=== PATIENT | male | born 2000 | race Caucasian/White ===

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

== ENCOUNTER → 2021-09-15 14:57 | Outpatient (BNVA) | payer OTHER, SELFPAY | PROVIDERS: PCP Family Medicine; Visit Provider Registered Nurse | DX: Z79.899 Other long term (current) drug therapy (principal) | CPT/HCPCS: 80053; 80061; 82306; 83036; 84443; 85025 ==

== ENCOUNTER → 2021-12-11 18:13 | Outpatient (BNVA) | payer OTHER, SELFPAY | PROVIDERS: PCP Family Medicine; Visit Provider Registered Nurse Neonatal Intensive Care | DX: J02.9 Acute pharyngitis, unspecified (principal) | CPT/HCPCS: 87880 ==

== ENCOUNTER → 2022-08-27 13:24 | Outpatient (BNVA) | payer OTHER, SELFPAY | PROVIDERS: PCP Family Medicine; Visit Provider Family Medicine | DX: R00.2 Palpitations (principal); E66.01 Morbid (severe) obesity due to excess calories | CPT/HCPCS: 80053; 80061; 83036; 84443; 85025 ==

== ENCOUNTER → 2022-08-28 11:46 | Outpatient (BNVA) | payer OTHER, SELFPAY | PROVIDERS: PCP Family Medicine; Visit Provider Family Medicine | DX: R00.2 Palpitations (principal); E66.01 Morbid (severe) obesity due to excess calories; D64.9 Anemia, unspecified | CPT/HCPCS: 80053; 82728; 83550 ==

== ENCOUNTER → 2023-02-25 14:25 | Outpatient (BNVA) | payer OTHER, SELFPAY | PROVIDERS: PCP Family Medicine; Visit Provider Family Medicine | DX: D50.9 Iron deficiency anemia, unspecified (principal); K90.41 Non-celiac gluten sensitivity; E55.9 Vitamin D deficiency, unspecified; Z86.39 Personal history of other endocrine, nutritional and metabolic disease | CPT/HCPCS: 82306; 82728; 82784; 83516; 83550; 85025 ==

== ENCOUNTER 2023-04-23 09:05 | Day surgery (SDC) | payer OTHER, MEDICAID, SELFPAY ==
[2023-04-21 13:21] VITALS: BMI 35.7
--- NOTE | 2023-04-23 06:45 | W.PM.OPSFHP ---
Same Day Surgery H&P Indication for Procedure/HPI DATE OF PROCEDURE: April 23, 2023 CHIEF COMPLAINT/INDICATIONFOR SURGICAL PROCEDURE: Reflux PREOP DIAGNOSIS: GERD PLANNED PROCEDURE: Operation Date: 04/23/23 10:00 Proposed Procedures p EGD 87872,k21.9(Not Applicable) - Josias Maynard MD Medications/Allergies* Home Medications Medication Instructions Recorded Confirmed Type ferrous gluconate 240 mg (27 mg 240 mg PO DAILY 03/11/23 04/21/23 History iron) tablet (Ferate) Allergies/Adverse Reactions Allergy/AdvReac Type Severity Reaction Status Date / Time diphenhydramine Allergy Severe Unconscious Verified 03/11/23 13:41 [From Benadryl] Pertinent History/Comorbid Conditions* Medical History (Updated 02/28/23 @ 11:18 by Valentine Bennett DO) Attention deficit hyperactivity disorder (ADHD), combined type, mild Generalized anxiety disorder Major depressive disorder, recurrent Psychiatric care Family History (Updated 01/29/22 @ 10:17 by Ezio Knox EdD, GLASS MELT OPERATOR) Psychiatric care Social History Smoking and tobacco status: current every day smoker (smokes and vapes) Alcohol intake: current Alcohol intake frequency: holidays/special occasions only Substance/Drug Use: never Pertinent Exam Findings alert, oriented x 3, clear to auscultation bilaterally and regular rate & rhythm Recommendations Surgery/Procedure today Coding Level of Care Code Acute Code for Chg Fwd Diagnoses
[2023-04-23 09:24] VITALS: BP 123/76; PULSE 65; RESP 18; TEMP 36.4; O2SAT 98
[2023-04-23] MEDS: sodium chloride 0.9% 1,000 ML 30 ML IV (09:24)
[2023-04-23 09:26] VITALS: BMI 35.7
--- NOTE | 2023-04-23 09:33 | ANES.PREANE2 ---
Pre-Anesthetic Assessment Height/Weight: Height 1.73 m Weight 106.594 kg Temp Pulse Resp BP Pulse Ox O2 Del Method 97.6 F 65 18 123/76 98 Room Air 04/23/23 09:24 04/23/23 09:24 04/23/23 09:24 04/23/23 09:24 04/23/23 09:24 04/23/23 09:24 Preop Diagnosis: GERD Operation Date: 04/23/23 10:00 Proposed Procedures p EGD [id number],k21.9(Not Applicable) - Josias Maynard MD Was Beta Masood taken within 24 hours: N/A Was Clonidine taken within 24 hours: N/A Last intake: Intake Last Liquid Date 04/22/23 Last Liquid Time 23:30 Last Solid Date 04/22/23 Last Solid Time 23:30 Social Tobacco Exam alert, oriented x 3, clear to auscultation bilaterally and regular rate & rhythm Airway Submandibular: within normal limits Cervical ROM: within normal limits Mallampati: Class II Dentition: full History/ROS No significant history except as noted and No significant complaints Pulmonary None reported CV/HEM None reported None reported Hepatic None reported GI Gastroesophageal Reflux Disease Metabolic None reported Musc/skel None reported Neuropsych Anxiety and Depression ADHD Anesthetic Plan Anesthesia: Anesthesia Evaluation and MAC Risk of > 500 ml blood loss (7ml/kg in children): No Medications/Allergies Home Medications Medication Instructions Recorded Confirmed Last Taken Type diltiazem HCl 30 mg tablet 30 mg PO BID PRN tachycardia #90 04/30/22 04/23/23 04/22/23 Rx tabs gabapentin 100 mg capsule See Rx Instructions .Route 10/08/22 04/23/23 04/22/23 Rx .COMPLEX #30 caps L.acidop,casei,lactis,rham-B.lact,komal 1 cap PO DAILY #30 caps 02/25/23 04/23/23 04/22/23 Rx 625 mg (10 billion cell) capsule (Advanced Probiotic) omeprazole 40 mg capsule,delayed 40 mg PO DAILY #90 caps 02/25/23 04/23/23 04/22/23 Rx release cholecalciferol (vitamin D3) 1,250 50,000 unit PO .weekly #12 caps 02/26/23 04/23/23 04/22/23 Rx mcg (50,000 unit) capsule ferrous gluconate 240 mg (27 mg 240 mg PO DAILY 03/11/23 04/23/23 04/22/23 History iron) tablet (Ferate) lamotrigine 200 mg tablet See Rx Instructions .Route 03/26/23 04/23/23 04/22/23 Rx .COMPLEX #30 tabs methylphenidate HCl 20 mg tablet 20 mg PO DAILY 30 days #30 tabs 03/29/23 04/23/23 04/22/23 Rx methylphenidate HCl 20 mg 40 mg PO DAILY 30 days #60 tabs 03/29/23 04/23/23 04/22/23 Rx tablet,extended release (Metadate ER) Allergies Allergy/AdvReac Type Severity Reaction Status Date / Time diphenhydramine Allergy Severe Unconscious Verified 04/23/23 09:23 [From Nicky] Current Medications Generic Name Dose Route Start Last Admin Trade Name Freq PRN Reason Stop Dose Admin Sodium Chloride 1,000 mls @ 30 mls/hr 04/23/23 09:15 04/23/23 09:24 Sodium Chloride 0.9% IV 30 mls/hr .Q24H JACQUIE Administration PFSH Anesthesia Medical History Attention deficit hyperactivity disorder (ADHD), combined type, mild Generalized anxiety disorder Major depressive disorder, recurrent Psychiatric care Family History Other Psychiatric care Social History Smoking and tobacco status: current every day smoker (smokes and vapes) Alcohol intake: current Alcohol intake frequency: holidays/special occasions only Substance/Drug Use: never Data Anesthesia Cardiac Studies: Echocardiogram Ultrasound 07/05/20 Holter Monitor 04/30/22
[2023-04-23 10:13] VITALS: BP 120/70; PULSE 95; RESP 20; TEMP 36.2; O2SAT 93
[2023-04-23 10:25] VITALS: BP 119/79; PULSE 78; RESP 16; O2SAT 100
[2023-04-23 10:32] VITALS: BP 97/82; PULSE 75; RESP 18; O2SAT 100
--- NOTE | 2023-04-23 10:45 | ANE.PACU2 ---
Inpatient post-anesthesia follow up: Airway intact: Yes Vital signs: Temperature 97.1 F Pulse Rate 75 Respiratory Rate 18 Blood Pressure 97/82 Pulse Oximetry 100 Oxygen Delivery Me thod Room Air Oxygen Flow Rate 6 Fraction of Inspir ed Oxygen Hydration adequate: Yes Nausea and vomiting: No Pain level: 1 Mental status: Baseline
== END 2023-04-23 10:55 | disposition home or self-care (01) ==
PROVIDERS: PCP Family Medicine; Visit Provider Surgery
PROC: 0DJ08ZZ Inspection of Upper Intestinal Tract, Via Natural or Artificial Opening Endoscopic (ICD-10-PCS; CPT 43235; principal; 2023-04-23 10:00)
DX: K21.9 Gastro-esophageal reflux disease without esophagitis (principal); K29.50 Unspecified chronic gastritis without bleeding; F90.9 Attention-deficit hyperactivity disorder, unspecified type; F41.1 Generalized anxiety disorder; F17.290 Nicotine dependence, other tobacco product, uncomplicated
CPT/HCPCS: 43239; 88305; 88342; J2704; J7030

== ENCOUNTER → 2024-10-20 13:41 | Outpatient (BNVA) | payer OTHER, SELFPAY | PROVIDERS: Family Provider Family Medicine; PCP Family Medicine; Visit Provider Family Medicine | DX: D50.8 Other iron deficiency anemias (principal); D50.9 Iron deficiency anemia, unspecified; E55.9 Vitamin D deficiency, unspecified; Z86.39 Personal history of other endocrine, nutritional and metabolic disease; Z13.6 Encounter for screening for cardiovascular disorders | CPT/HCPCS: 80053; 80061; 82306; 82728; 83550; 84443; 85025 ==

== ENCOUNTER 2025-05-11 01:27 | Emergency (ER) | payer OTHER, SELFPAY ==
--- OUTSIDE RECORDS SUMMARY | 2025-05-11 01:32 | XMS_ITS | Clinical Summary ---
Author Organization [facility] Address [address] [facility] Attn: Epic Prelude ADT TAYLER DOUGLAS [address] Care Team Providers Care Wire Wrapper Machine Operator Name Role Phone Valentine Bennett Primary Care Provider [phone]- [phone] Allergies No known active allergies Medications HYDROcodone-shaun taminophen (NORCO) 5-325 mg tabletIndicatio ns:Postoperativ e pain Take 1-2 Tablets by mouth every 4 hours as needed for Pain. Max Daily Amount: 12 Tablets 40 Tablet 0 12/08/2018 Active buPROPion HCL (WELLBUTRIN XL) 150 mg Extended Release 24 hour tablet Take 150 mg by mouth daily technical asst. 12/02/2018 Active sertraline (ZOLOFT) 100 mg tablet Take 100 mg by mouth daily Takes 07/19/2 tab qd . 07/21/2018 Active acetaminophen (TYLENOL) 500 mg tablet Take 500 mg by mouth every 6 hours as needed. 08/22/2018 Active Family History Medical History Relation Name Comments Hearing Loss Maternal Grandfather Bleeding Problem Maternal Grandmother Heart Disease Maternal Grandmother Stroke Maternal Grandmother Bleeding Problem Mother Bleeding Problem Other Hearing Loss Other Stroke Other Hearing Loss Paternal Grandfather Breast Cancer Paternal Grandmother Cancer Paternal Grandmother Diabetes Paternal Grandmother Relation Name Status Comments Maternal Grandfather Maternal Grandmother Mother Other Paternal Grandfather Paternal Grandmother Social History Tobacco Use Types Packs/Day Years Used Date Smoking Tobacco: Unknown Smokeless Tobacco: Never Alcohol Use Standard Drinks/Week Comments No 0 (1 standard drink = 0.6 oz pur e alcohol) Sex and Gender Information Value Date Recorded Sex Assigned at Not on file 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 Gender Identity Not on file Sexual Orientation Not on file Last Filed Vital Signs Vital Sign Reading Time Taken Comments Blood Pressure 119/70 12/08/2018 4:13 PM CDT Pulse 87 12/08/2018 4:13 PM CDT Temperature 36.4 C (97.6 F) 12/08/2018 3:30 PM CDT Respiratory Rate 16 12/08/2018 4:13 PM CDT Oxygen Saturation - - Inhaled Oxygen Concentration - - Weight 61.7 kg (136 lb) 12/08/2018 11:47 AM CDT Height 170.2 cm (5' 7 ) 12/02/2018 2:52 PM CDT Body Mass Index 21.3 12/02/2018 2:52 PM CDT Plan of Treatment Health Maintenance Due Date Last Done Comments HPV VACCINES (1 - Male 3-dose series) 2016 DTAP/TDAP/TD VACCINES (1 - Tdap) 2020 HEPATITIS B VACCINES (1 of 3 - 19+ 3-dose series) 09/16 INFLUENZA VACCINE (#1) 2025 Care Teams Wire Wrapper Machine Operator Relationship Specialty Start Date End Date Valentine Bennett DO PCP - General Family Practice 10/21/18
--- OUTSIDE RECORDS SUMMARY | 2025-05-11 01:32 | XMS_ITS | Clinical Summary ---
Author Organization [facility] Address [address] [place] [address] Care Team Providers Care Tab Cutter Name Role Phone Valentine Bennett Primary Care Provider +1- [phone] Allergies No known active allergies Medications sertraline (ZOLOFT) 100 mg tablet Take 100 mg by mouth daily Takes tab qd . Active acetaminophen (TYLENOL) 500 mg tablet Take 500 mg by mouth every 6 hours as needed. Active buPROPion HCl (WELLBUTRIN XL) 150 mg Extended Release 24 hour tablet Take 150 mg by mouth daily operator electronic warfare. Active HYDROcodone-shaun taminophen (NORCO) 5-325 mg tabletIndicatio ns:Postoperativ e pain Take 1-2 Tablets by mouth every 4 hours as needed for Pain. 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 Gender Identity Not on file Sexual Orientation Not on file Last Filed Vital Signs Vital Sign Reading Time Taken Comments Blood Pressure 119/70 12/08/2018 4:13 PM CDT Pulse 87 12/08/2018 4:13 PM CDT Temperature 36.4 C (97.6 F) 12/08/2018 3:30 PM CDT Respiratory Rate 16 12/08/2018 4:13 PM CDT Oxygen Saturation 99% 12/08/2018 4:13 PM CDT Inhaled Oxygen Concentration - - Weight 61.7 [...] 3-dose series) 09/16 INFLUENZA VACCINE (#1) 2025 Insurance [employer]US [employer] CHOICE PLUS Advance Directives For more information, please contact: [phone] * Full Code (Latest Code Status on File) Date Activated Date Inactivated Comments 12/08/2018 1:14 PM 12/08/2018 6:58 PM * Full Code Date Activated Date Inactivated Comments 07/25/2018 2:33 PM 07/25/2018 6:41 PM * Full Code Date Activated Date Inactivated Comments 07/25/2018 9:23 AM 07/25/2018 2:33 PM Care Teams Tab Cutter Relationship Specialty Start Date End Date Valentine Bennett DO PCP - General Family Practice 10/21/18
[2025-05-11 01:56] VITALS: BP 126/78; PULSE 64; RESP 18; TEMP 36.5; O2SAT 100; BMI 22.9
[2025-05-11 02:48] LABS: Hematocrit 46.9 % (37-53); Hemoglobin 15.60 g/dL (11.27-16.99); Mean Corpuscular HGB Conc 33.3 g/dL (30-55); Mean Corpuscular Hemoglobin 30.1 pg (27-33); Mean Corpuscular Volume 90.5 fl (82-101); Nucleated Red Blood Cells % 0 %; Platelet Count 327 10^3/cmm (157-399); Red Blood Count 5.18 10^6/uL (3.85-5.65); White Blood Count 13.54 10^3/uL (3.29-11.43)
[2025-05-11 03:12] LABS: Alanine Aminotransferase 19 U/L (0-41); Albumin Level 5.5 g/dL (3.5-5.2); Alkaline Phosphatase 77 U/L (40-130); Anion Gap 17.6 (5-19); Aspartate Amino Transferase 17 U/L (0-40); Blood Urea Nitrogen 14 mg/dL (6-20); Calcium 10.7 mg/dL (8.5-10.5); Carbon Dioxide 28 mmol/L (22-29); Chloride 99 mmol/L (98-107); Creatinine Clr Calc Pharmacy 185.3497; Globulin 2.9 g/dL (1.3-4.6); Glucose 105 mg/dL (65-115); Lipase 26 U/L (13-60); Osmolality Calculated 293 mOsm/kg (285-295); Potassium 3.6 mmol/L (3.5-5.1); Sodium 141 mmol/L (136-145); Total Protein 8.4 g/dL (6.6-8.7)
--- NOTE | 2025-05-11 03:24 | CTR_ITS ---
PROCEDURE INFORMATION: Exam: CT Abdomen And Pelvis With Contrast Exam date and time: 05/11/2025 4:29 AM Age: 24 years old Clinical indication: Abdominal pain; Additional info: Ruq pain TECHNIQUE: Imaging protocol: Computed tomography of the abdomen and pelvis with contrast. Radiation optimization: All CT scans at this facility use at least one of these dose optimization techniques: automated exposure control; mA and/or kV adjustment per patient size (includes targeted exams where dose is matched to clinical indication); or iterative reconstruction. Contrast material: OMNI 350; Contrast volume: 100 ml; Contrast route: INTRAVENOUS (IV); COMPARISON: No relevant prior studies available. RADIATION DOSE METRICS: Total DLP (mGy-cm): 416.83 FINDINGS: Lungs: Lung bases are clear as visualized. Liver: Normal. No mass. Gallbladder and biliary ducts: Findings suspicious for gallstones or possibly sludge within the gallbladder. There may be gallbladder wall thickening although no definite pericholecystic fluid or inflammatory fat stranding is noted. Pancreas: Normal. No ductal dilation. Spleen: Normal. No splenomegaly. Adrenal glands: Normal. No mass. Kidneys and ureters: Are multiple small nonobstructing renal calculi involving the right kidney. The left kidney is normal. No hydronephrosis is noted. Stomach and bowel: There is mild wall thickening versus underdistention involving the colon. There are air-fluid levels involving nondilated loops of small bowel. No dilated loops of bowel are appreciated. Appendix: No evidence of appendicitis. Intraperitoneal space: Unremarkable. No free air. No significant fluid collection. Vasculature: Unremarkable. No abdominal aortic aneurysm. Lymph nodes: Unremarkable. No enlarged lymph nodes. Urinary bladder: Unremarkable as visualized. Reproductive: Unremarkable as visualized. Bones/joints: Unremarkable. No acute fracture. Soft tissues: Unremarkable. CT/CT abdomen pelvis w con* [id number] IMPRESSION: 1. Somewhat heterogeneous appearance to the gallbladder suggestive of stones and/or sludge. There may be mild gallbladder wall thickening all no no definite adjacent inflammatory fat stranding is noted. Findings could be related to acute or chronic gallbladder disease. Ultrasound may add additional information if desired. 2. Nephrolithiasis on the right. 3. Wall thickening versus underdistention involving the colon. Recommend clinical correlation as to the presence of a mild colitis. 4. Air-fluid levels involving nondilated loops of small bowel. This is a nonspecific finding but can be seen with an ileus/enteritis.
--- NOTE | 2025-05-11 03:25 | W.ED.GENADLT ---
HPI - General Adult General: Chief complaint: Abdominal Pain Stated complaint: severe abd pain, on and off for 4 days Time Seen by Provider: 05/11/25 02:47 History of Present Illness: 24-year-old male presents with a chief complaint of 4 days of right upper quadrant pain, worse with eating, now persistent. Pain comes and goes and is severe. It has been associate with nausea, vomiting and diarrhea. No fever, chest pain or shortness of breath though patient states that he does feel little short of breath when the pain hits. No blood in stool. No urinary symptoms such as burning with urination or hematuria. He does not have any history of abdominal surgeries. Patient denies tobacco, alcohol or illicit drug use. Related Data Home Medications ?Medication ?Instructions ?Recorded ?Confirmed ferrous gluconate 240 mg (27 mg 240 mg PO DAILY 03/11/23 04/10/25 iron) tablet (Ferate) cholecalciferol (vitamin D3) 250 250 mcg PO DAILY 08/09/24 04/10/25 mcg (10,000 unit) capsule Previous Rx's ?Medication ?Instructions ?Recorded diltiazem HCl 30 mg tablet 30 mg PO BID PRN tachycardia #90 04/30/22 tabs gabapentin 100 mg capsule See Rx Instructions .Route 01/11/25 .COMPLEX #30 caps bupropion HCl 150 mg 24 hr tablet, 150 mg PO QAM #30 tabs 04/10/25 extended release (Wellbutrin XL) lamotrigine 200 mg tablet See Rx Instructions .Route 04/10/25 .COMPLEX #30 tabs dextroamphetamine-amphetamine 20 20 mg PO QDAY 30 days #30 tabs 05/10/25 mg tablet dextroamphetamine-amphetamine ER 30 mg PO BID 30 days #60 caps 05/10/25 30 mg 24hr capsule,extend release (Adderall XR) hyoscyamine sulfate 0.125 mg tablet 0.125 mg PO Q6H PRN pain/spasm #30 05/11/25 tabs ketorolac 10 mg tablet 10 mg PO Q6H PRN pain 5 days #20 05/11/25 tabs ondansetron HCl 4 mg tablet 4 mg PO Q6H PRN nausea and 05/11/25 vomiting 5 days #20 tabs oxycodone 5 mg tablet 5 mg PO Q6H PRN severe pain (scale 05/11/25 score 7-10) #12 tabs Allergies Allergy/AdvReac Type Severity Reaction Status Date / Time diphenhydramine (From Allergy Severe Unconscious Verified 05/11/25 01:59 Benadryl) [facility] PFSH: Medical History (Updated 05/11/25 @ 06:31 by Liudmila Lebron MD) Major depressive disorder, recurrent Psychiatric care Generalized anxiety disorder Attention deficit hyperactivity disorder (ADHD), combined type, mild Surgical History Hx of tonsillectomy Family History Other Psychiatric care Social History Smoking and tobacco/nicotine status: former use of tobacco/nicotine Quit status (tobacco/nicotine): has quit using Year quit tobacco: 6 MO AGO Alcohol intake: current Alcohol intake frequency: holidays/special occasions only Substance/Drug Use: never Physical Exam Narrative: EXAM NARRATIVE: Vitals were reviewed. Patient is alert, oriented and able to provide history however he appears to be in severe pain and is writhing on the bed. Patient has clear lung sounds bilaterally, SpO2 is 100% on room air. He has normal heart sounds. Patient is not hypotensive nor tachycardic. Patient has a nondistended and soft abdomen, no pain with palpation over the McBurney's point, suprapubic region, left lower quadrant or epigastrium. He is exquisitely tender over the right upper quadrant; positive Rivera sign. Patient is moving all extremities, no lower extremity edema or asymmetry. Course Vital Signs: Vital signs: Vital Signs Temperature 97.7 F 05/11/25 01:56 Pulse Rate 64 05/11/25 01:56 Respiratory Rate 18 05/11/25 01:56 Blood Pressure 126/78 05/11/25 01:56 Pulse Oximetry 100 05/11/25 01:56 [facility] - General Adult Medical Decision Making 24-year-old male with a chief complaint of 4 days of right upper quadrant abdominal pain, nausea, vomiting and diarrhea. Differential diagnosis includes, but is not limited to, pancreatitis, cholecystitis, gastroenteritis, appendicitis, urinary tract infection, pyelonephritis, nephrolithiasis, SBO, diverticulitis, other. On initial exam, patient is hemodynamically stable and nontoxic appearing. Patient was evaluated with CBC, CMP, lipase, UA and CT abd/pelvis. Patient was treated IV Dilaudid, IV Zofran and IV fluids. Patient has an elevated white blood cell count. He does not have any actionable electrolyte abnormalities. Patient has normal kidney function and liver function. Patient patient has normal kidney function and liver function. UA does not show evidence of infection however there is significant number of red blood cells. CT scan does show some stones in the kidney, I wonder if patient has passed a kidney stone. CT shows: IMPRESSION: 1. Somewhat heterogeneous appearance to the gallbladder suggestive of stones and/or sludge. There may be mild gallbladder wall thickening all no no definite adjacent inflammatory fat stranding is noted. Findings could be related to acute or chronic gallbladder disease. Ultrasound may add additional information if desired. 2. Nephrolithiasis on the right. 3. Wall thickening versus underdistention involving the colon. Recommend clinical correlation as to the presence of a mild colitis. 4. Air-fluid levels involving nondilated loops of small bowel. This is a nonspecific finding but can be seen with an ileus/enteritis. CT scan does not show definitive evidence of cholecystitis. LFTs are are within normal limits and patient has been afebrile. We discussed transfer to [place] for emergent surgical consultation versus outpatient surgical evaluation on Wednesday. Patient opted for outpatient evaluation. We discussed return precautions and he was encouraged to return should he spike a fever, pain is uncontrolled at home, he continues to have nausea and vomiting despite medications. At this time, patient is stable for discharge and close outpatient surgical follow-up. Lab Data 05/11/25 02:41 05/11/25 02:41 Radiology Impressions Abdomen/Pelvis CT 05/11/25 03:24 IMPRESSION: 1. Somewhat heterogeneous appearance to the gallbladder suggestive of stones and/or sludge. There may be mild gallbladder wall thickening all no no definite adjacent inflammatory fat stranding is noted. Findings could be related to acute or chronic gallbladder disease. Ultrasound may add additional information if desired. 2. Nephrolithiasis on the right. 3. Wall thickening versus underdistention involving the colon. Recommend clinical correlation as to the presence of a mild colitis. 4. Air-fluid levels involving nondilated loops of small bowel. This is a nonspecific finding but can be seen with an ileus/enteritis. Laboratory Results WBC 13.54 10^3/uL (3.29-11.43) H 05/11/25 02:41 RBC 5.18 10^6/uL (3.85-5.65) 05/11/25 02:41 Hgb 15.60 g/dL (11.27-16.99) 05/11/25 02:41 Hct 46.9 % (37-53) 05/11/25 02:41 MCV 90.5 fl (82-101) 05/11/25 02:41 MCH 30.1 pg (27-33) 05/11/25 02:41 MCHC 33.3 g/dL (30-55) 05/11/25 02:41 RDW 12.5 % (12.1-15.1) 05/11/25 02:41 Plt Count 327 10^3/cmm (157-399) 05/11/25 02:41 MPV 9.1 fL (7.4-10.4) 05/11/25 02:41 Neut % (Auto) 80.8 % 05/11/25 02:41 Lymph % (Auto) 12.5 % 05/11/25 02:41 [place] % (Auto) 5.1 % 05/11/25 02:41 Eos % (Auto) 1.0 % 05/11/25 02:41 Baso % (Auto) 0.3 % 05/11/25 02:41 Neut # (Auto) 10.95 10^3/uL (1.8-7.7) H 05/11/25 02:41 Lymph # (Auto) 1.7 10^3/uL (0.8-4.8) 05/11/25 02:41 [place] # (Auto) 0.7 10^3/uL (0.2-0.9) 05/11/25 02:41 Eos # (Auto) 0.1 10^3/uL (0.0-0.8) 05/11/25 02:41 Baso # (Auto) 0.0 10^3/uL (0.0-0.1) 05/11/25 02:41 Nucleated RBC % (auto) 0 % 05/11/25 02:41 Nucleated RBCs # 0.0 /100WBC 05/11/25 02:41 Sodium 141 mmol/L (136-145) 05/11/25 02:41 Potassium 3.6 mmol/L (3.5-5.1) 05/11/25 02:41 Chloride 99 mmol/L (98-107) 05/11/25 02:41 Carbon Dioxide 28 mmol/L (22-29) 05/11/25 02:41 Anion Gap 17.6 (5-19) 05/11/25 02:41 BUN 14 mg/dL (6-20) 05/11/25 02:41 Creatinine 0.6 mg/dL (0.7-1.2) L 05/11/25 02:41 GFR Calculation 167.0 mL/min (90-130) H 05/11/25 02:41 Glucose 105 mg/dL (65-115) 05/11/25 02:41 Calculated Osmolality 293 mOsm/kg (285-295) 05/11/25 02:41 Calcium 10.7 mg/dL (8.5-10.5) H 05/11/25 02:41 Total Bilirubin 0.5 mg/dL (0.15-1.2) 05/11/25 02:41 AST 17 U/L (0-40) 05/11/25 02:41 ALT 19 U/L (0-41) 05/11/25 02:41 Alkaline Phosphatase 77 U/L (40-130) 05/11/25 02:41 Total Protein 8.4 g/dL (6.6-8.7) 05/11/25 02:41 Albumin 5.5 g/dL (3.5-5.2) H 05/11/25 02:41 Globulin 2.9 g/dL (1.3-4.6) 05/11/25 02:41 Lipase 26 U/L (13-60) 05/11/25 02:41 Urine Color Yellow (Yellow) 05/11/25 05:45 Urine Appearance Clear (CLEAR) 05/11/25 05:45 Urine pH 8.5 (5-7) A 05/11/25 05:45 Ur Specific [place] 1.081 (1.005-1.030) H 05/11/25 05:45 Urine Protein Trace (Negative) A 05/11/25 05:45 Urine Glucose (UA) Negative (Normal) 05/11/25 05:45 Urine Ketones 2+ (Negative) H 05/11/25 05:45 Urine Blood 3+ (Negative) A 05/11/25 05:45 Urine Nitrate Negative (Negative) 05/11/25 05:45 Urine Bilirubin Negative (Negative) 05/11/25 05:45 Urine Urobilinogen 1.0 mg/dL (Negative) 05/11/25 05:45 Ur Leukocyte Esterase Negative (Negative) 05/11/25 05:45 Urine RBC 51-100 /hpf (0-2) H 05/11/25 05:45 Urine WBC 0-5 /hpf (0-5) 05/11/25 05:45 Ur Squamous Epith Cells 0-5 /hpf (0-5) 05/11/25 05:45 Amorphous Sediment Not Reportable 05/11/25 05:45 Urine Bacteria None seen /hpf (NONE) 05/11/25 05:45 Hyaline Casts 0-4 /lpf H 05/11/25 05:45 All radiology interpretation(s) finalized by discharge Discharge Plan Discharge Patient Disposition: Home Clinical Impression: Colic, biliary, Kidney stone on right side Condition: Stable Prescriptions: New ketorolac 10 mg tablet 10 mg PO Q6H PRN (Reason: pain) 5 Days Qty: 20 0RF ondansetron HCl 4 mg tablet 4 mg PO Q6H PRN (Reason: nausea and vomiting) 5 Days Qty: 20 0RF hyoscyamine sulfate 0.125 mg tablet 0.125 mg PO Q6H PRN (Reason: pain/spasm) Qty: 30 0RF oxycodone 5 mg tablet 5 mg PO Q6H PRN (Reason: severe pain (scale score 7-10)) Qty: 12 0RF No Action diltiazem HCl 30 mg tablet 30 mg PO BID PRN (Reason: tachycardia) Qty: 90 3RF ferrous gluconate [Ferate] 240 mg (27 mg iron) tablet 240 mg PO DAILY cholecalciferol (vitamin D3) 250 mcg (10,000 unit) capsule 250 mcg PO DAILY bupropion HCl [Wellbutrin XL] 150 mg tablet extended release 24 hr 150 mg PO QAM Qty: 30 5RF lamotrigine 200 mg tablet See Rx Instructions .ROUTE .COMPLEX Qty: 30 5RF Dose Instruction: TAKE 1 TABLET BY MOUTH DAILY Rx Instructions: TAKE 1 TABLET BY MOUTH DAILY gabapentin 100 mg capsule See Rx Instructions .ROUTE .COMPLEX Qty: 30 5RF Dose Instruction: TAKE 1 CAPSULE BY MOUTH DAILY NEEDED FOR ANXIETY Rx Instructions: TAKE 1 CAPSULE BY MOUTH DAILY NEEDED FOR ANXIETY dextroamphetamine-amphetamine 20 mg tablet 20 mg PO QDAY 30 Days Qty: 30 0RF dextroamphetamine-amphetamine [Adderall XR] 30 mg capsule,extended release 24hr 30 mg PO BID 30 Days Qty: 60 0RF Discharge Orders: Discharge ED (Routine); Ordered 05/11/25 Ordered By: Liudmila Lebron Referrals: Valentine Bennett DO [Primary Care Provider, Family Practice] Patient Instructions: Abdominal Pain (ED), Opioid Safety, Pain Management, Patient Portal & Aime Instructions Print Language: Polish Coding Level of Care Code ED [employer] Lay Out Worker for Luz Elena Allsion
[2025-05-11] MEDS: HYDROmorphone 0.5 MG/0.5 ML INJ 1 MG IVP (04:17)
[2025-05-11] MEDS: ondansetron 2 mg/ML SDV 2 mL 8 MG IVP (04:17)
[2025-05-11] MEDS: iohexol 350 mg/mL 500 mL Btl (per mL) IV (04:34)
[2025-05-11 05:57] LABS: Glucose Urine UA Negative (Normal); Nitrate Urine Negative (Negative)
[2025-05-11 06:02] LABS: Add Urine Microscopic? YES
[2025-05-11 06:09] LABS: Specific Gravity, Urine 1.081 (1.005-1.030)
[2025-05-11] MEDS: acetaminophen 1,000 MG/100 ML PIGGYBACK 400 MG IV (07:21)
[2025-05-11 07:23] VITALS: RESP 16
[2025-05-11] MEDS: ondansetron 2 mg/ML SDV 2 mL 4 MG IVP (07:23)
[2025-05-11] MEDS: morphine 4 mg/mL SDV 1 mL IVP (07:23)
[2025-05-11 07:29] VITALS: BP 130/86; PULSE 60; O2SAT 99
--- NOTE | 2025-05-11 08:22 | DCPLANNER ---
called gen surg. appts not avail on wednesday as michelle requested but able to schedule 05/16 @ 0830.
[2025-05-11 08:46] VITALS: BP 127/82; PULSE 64; O2SAT 96
== END 2025-05-11 08:49 | disposition home or self-care (01) ==
PROVIDERS: Emergency Provider Emergency Medicine; PCP Family Medicine
DX: K80.50 Calculus of bile duct without cholangitis or cholecystitis without obstruction (principal); N20.0 Calculus of kidney; Z87.891 Personal history of nicotine dependence
CPT/HCPCS: 36415; 74177; 80053; 81001; 83690; 85025; 87086; 96374; 96375; 96376; 99285; J0131; J1171; J1885; J2270; J2405; J7120

== ENCOUNTER 2025-05-23 12:03 | Inpatient (IN) | payer OTHER, SELFPAY ==
[2025-05-23] VITALS (19 sets, daily range): BP systolic 106–138; BP diastolic 55–92; PULSE 77–112; RESP 13–20; TEMP 36.1–36.9; O2SAT 92–100; BMI 23.6; BMI 23.1
--- NOTE | 2025-05-23 06:16 | ANES.PREANE2 ---
Pre-Anesthetic Assessment Height/Weight: Height 5 ft 8 in Preop Diagnosis: Biliary colic Operation Date: 05/23/25 07:00 Proposed Procedures p Laparoscopic POSSIBLE OPEN Cholecystectomy 96634 K80.50(Not Applicable) - Tony Ramirez MD Was Beta Masood taken within 24 hours: N/A Was Clonidine taken within 24 hours: N/A Social No alcohol and No tobacco Quit smoking earlier this year Exam alert, oriented x 3, clear to auscultation bilaterally and regular rate & rhythm Airway Submandibular: within normal limits Mallampati: Class II Dentition: full Anesthetic Plan ASA status: 3 Anesthesia: General Other: No prior issues with anesthesia NPO since yesterday evening Patient has been diagnosed with POTS. Diltiazem as needed ADHD, on Adderall Quit smoking earlier this year Recent labs from 05/07/2025 reviewed acceptable for procedure Plan for GETA Medications/Allergies Home Medications ?Medication ?Instructions ?Recorded ?Confirmed ?Last Taken ?Type diltiazem HCl 30 mg tablet 30 mg PO BID PRN tachycardia #90 04/30/22 05/22/25 04/22/23 Rx tabs ferrous gluconate 240 mg (27 mg 240 mg PO DAILY 03/11/23 05/22/25 05/22/25 History iron) tablet (Ferate) cholecalciferol (vitamin D3) 250 250 mcg PO DAILY 08/09/24 05/22/25 05/22/25 History mcg (10,000 unit) capsule gabapentin 100 mg capsule See Rx Instructions .Route 01/11/25 05/23/25 05/22/25 Rx .COMPLEX #30 caps bupropion HCl 150 mg 24 hr tablet, 150 mg PO QAM #30 tabs 04/10/25 05/23/25 05/23/25 Rx extended release (Wellbutrin XL) dextroamphetamine-amphetamine 20 20 mg PO QDAY 30 days #30 tabs 05/10/25 05/22/25 05/23/25 Rx mg tablet dextroamphetamine-amphetamine ER 30 mg PO BID 30 days #60 caps 05/10/25 05/22/25 05/23/25 Rx 30 mg 24hr capsule,extend release (Adderall XR) oxycodone 5 mg tablet 5 mg PO Q6H PRN severe pain (scale 05/11/25 05/23/25 05/20/25 Rx score 7-10) #12 tabs lamotrigine 200 mg tablet 1 mg PO DAILY 05/22/25 05/23/25 05/22/25 History Allergies Allergy/AdvReac Type Severity Reaction Status Date / Time diphenhydramine (From Allergy Severe Unconscious Verified 05/23/25 06:12 Benadryl) [facility] Anesthesia Medical History (Updated 05/19/25 @ 00:01 by MARII Henson) Major depressive disorder, recurrent Psychiatric care Generalized anxiety disorder Attention deficit hyperactivity disorder (ADHD), combined type, mild Surgical History Hx of tonsillectomy Family History (Updated 05/16/25 @ 08:47 by Rema Elizalde LPN) Grandmother Breast cancer Other Psychiatric care Social History Smoking and tobacco/nicotine status: former use of tobacco/nicotine Quit status (tobacco/nicotine): has quit using Year quit tobacco: 6 MO AGO Alcohol intake: current Alcohol intake frequency: holidays/special occasions only Substance/Drug Use: never Data Anesthesia Cardiac Studies: Echocardiogram Ultrasound 07/05/20 Holter Monitor 04/30/22
--- NOTE | 2025-05-23 07:02 | W.PM.OPSUD ---
Surgery/Procedure H&P Update DATE OF PROCEDURE: May 23, 2025 DATE H&P PERFORMED: 05/16/25 H&P UPDATE INFORMATION: I have reviewed H&P completed within last 30 days, I have examined patient prior to procedure, No changes to prior documentation and Risks and benefits of the procedure reviewed PREOP DIAGNOSIS: Biliary colic PLANNED PROCEDURE: Operation Date: 05/23/25 07:00 Proposed Procedures p Laparoscopic POSSIBLE OPEN Cholecystectomy 37709 K80.50(Not Applicable) - Tony Ramirez MD
[2025-05-23] MEDS: ceFAZolin 2,000 mg SDV 2000 MG IVP (07:08)
[2025-05-23] MEDS: lidocaine-epi 1% 20 mL INJ INJECTION (07:27)
--- NOTE | 2025-05-23 08:58 | P.OP_ITS ---
Operative Report Date of procedure: May 23, 2025 Pre-op diagnosis: Biliary colic Post-op diagnosis: other Post-op diagnosis: Chronic gangrenous cholecystitis Post-op findings: Chronic gangrenous cholecystitis. Contracted gallbladder and filled with large stones. Thick inflammatory rind. Given severe inflammatory changes in right upper quadrant could not obtain critical view of safety. Bloody cystic plate. Updated the mother intraoperatively regarding the decision to proceed to open partial cholecystectomy who was in agreement. Converted to open cho lecystectomy. Opened the gallbladder and emptied the gallbladder which was filled with stones including a couple 1-2cm stones. Resected as much of the gallbladder as possible. Fired a couple green staple loads at the body of the gallbladder. More proximal dissection was unable to be achieved due to inflammatory changes and bleeding from cystic plate. Packed gallbladder and sent to pathology along with large stones. Washed out the abdomen with 2 L of warm normal saline. Adequate hemostasis achieved using electrocautery. Confirmed adequate hemostasis. Applied fibrin glue to resection bed. Left a 15 Romanian Giovani drain in the resection bed. Inspected the hepatic flexure, duodenum, stomach and they all appeared intact. Patient woke up anesthesia without any complications. Procedure done: Laparoscopic converted to open cholecystectomy Implants: N/A Specimens removed/disposition: Gallbladder sent to pathology along with large stones Pathology: Gallbladder sent to pathology along with large stone Surgeon: Tony Ramirez MD Drill Press Operator: N/A Anesthesia: General Estimated blood loss (mL): 50 Complications: N/A Findings: Chronic gangrenous cholecystitis. Contracted gallbladder and filled with large stones. Thick inflammatory rind. Given severe inflammatory changes in right upper quadrant could not obtain critical view of safety. Bloody cystic plate. Updated the mother intraoperatively regarding the decision to proceed to open partial cholecystectomy who was in agreement. Converted to open cholecystectomy. Opened the gallbladder and emptied the gallbladder which was filled with stones including a couple 1-2cm stones. Resected as much of the gallbladder as possible. Fired a couple green staple loads at the body of the gallbladder. More proximal dissection was unable to be achieved due to inflammatory changes and bleeding from cystic plate. Packed gallbladder and sent to pathology along with large stones. Washed out the abdomen with 2 L of warm normal saline. Adequate hemostasis achieved using electrocautery. Confirmed adequate hemostasis. Applied fibrin glue to resection bed. Left a 15 Romanian Giovani drain in the resection bed. Inspected the hepatic flexure, duodenum, stomach and they all appeared intact. Patient woke up anesthesia without any complications. Condition: stable Disposition: observation Brief History: 24-year-old male who presented with biliary colic. Discussed risk and benefits and patient agreed to proceed with laparoscopic cholecystectomy possible open. Procedure: I discussed the risks and benefits of laparoscopic cholecystectomy, possible open, and obtained consent prior to proceeding to the operating room. SCDs were utilized. Prophylactic antibiotics were administered. General anesthesia was induced. The patient was placed supine, and was prepped and draped in the usual sterile fashion. Insufflation to 15mmHg was achieved using a Veress needle at [place]'s point. A 5mm optiview trocar was placed at the umbilicus under direct visualization. The left upper quadrant was inspected, and no injuries were noted. Two 5mm ports were placed in the right upper quadrant, and a 12mm working port was placed in the epigastrium. My attention was then centered to the right upper quadrant. Initially the gallbladder was not visualized given dense adhesions surrounding the gallbladder. Adhesions were taken down bluntly using laparoscopic Kitners. The gallbladder was then visualized and had changes consistent with chronic gangrenous cholecystitis. It had a thick inflammatory rind. It was also filled with stones. There was also some purulent fluid around the gallbladder at the time of the surgery. The fundus of the gallbladder was grabbed and retracted proximally. I attempted to grab the infundibulum of the gallbladder for retraction however I was unable to given the inflammatory changes. I attempted dissecting the cystic artery as well as the cystic duct using a combination of blunt and sharp dissection, I also used the hook electrocautery to attend dissection of the structures. Given the severe inflammatory changes in the gallbladder was extremely friable and dissection proved extremely difficult. After attempting dissection for about 20 minutes the fundus of the gallbladder started tearing. I also encountered some bleeding near the body of the gallbladder coming from the cystic plate. At this point, given the difficult dissection and inability to obtain the critical view of safety I elected to convert to an open partial cholecystectomy. Before converting to an open procedure I called the mother to update her about these findings and the plan. She was in agreement. I then carried out a 12 cm incision in the right upper quadrant incorporating the epigastric as well as the right upper quadrant ports. I used a 10 blade to incise the skin. I then used electrocautery to dissect down to the posterior fascia. I entered the peritoneal cavity with sharp scissors. I then proceeded to washout the abdomen. I was able to visualize the liver, the gallbladder, the duodenum, and the hepatic flexure of the stomach. The duodenum, stomach, hepatic flexure were all intact. I then centered my attention to the gallbladder. I grabbed the fundus of the gallbladder using an Allis clamp. I then proceeded to dissect the gallbladder from a top-down approach. I was able to free the gallbladder from the gallbladder fossa down to the mid body. At this point dissection further proximal towards the cystic duct proved extremely difficult given the inflammatory changes. I did encounter more bleeding from the gallbladder fossa at this point. This was controlled by combination of pressure and electrocautery. At this point I decided to open the gallbladder in order to empty its stones. I encountered multiple large stones including 2 that were about 1 cm in diameter. I washed out the gallbladder as best as possible and confirmed the absence of any stones. I palpated the infundibulum, cystic duct, common bile duct and I did not palpate any stones. Once I ensured that no stones remain on palpation, I proceeded to perform a subtotal cholecystectomy by firing 2 green staple loads at the level of the mid body. I passed off the specimen which was sent to pathology along with 2 large stones. The resection bed was inspected once more. I confirmed the absence of any bile leaks. Adequate hemostasis had been achieved. I washed out the right upper quadrant once more with 1 L of normal saline. I was satisfied with the result. I then proceeded to apply fibrin glue to the gallbladder fossa. I inspected the abdomen 1 more time and confirmed that the stomach, duodenum, hepatic flexure were all intact. I elected to leave a drain in the right upper quadrant. All counts were correct prior to closure. I proceeded to close the fascia in 2 separate layers using 0 looped PDS. Skin was irrigated profusely with normal saline. Skin was closed using 4-0 Monocryl and surgical glue as well as a Prevena dressing. The port site at the umbilicus was closed using 4-0 Monocryl at skin level. Veress needle site was closed using surgical glue. The patient woke up from anesthesia without any complications. At the end of the case the drain was serosanguineous.
--- NOTE | 2025-05-23 08:59 | P.BOP_ITS ---
Date of Procedure: 05/23/2025 Surgeon: Dr. Ramirez Supply Chain Design Manager(s): N/A Procedure(s) performed: Laparoscopic converted to open cholecystectomy Findings of the procedure(s): Chronic gangrenous cholecystitis. Contracted gallbladder and filled with large stones. Thick inflammatory rind. Given severe inflammatory changes in right upper quadrant could not obtain critical view of safety. Bloody cystic plate. Updated the mother intraoperatively regarding the decision to proceed to open partial cholecystectomy who was in agreement. Converted to open cholecystectomy. Opened the gallbladder and emptied the gallbladder which was filled with stones including a couple 1-2cm s tones. Resected as much of the gallbladder as possible. Fired a couple green staple loads at the body of the gallbladder. More proximal dissection was unable to be achieved due to inflammatory changes and bleeding from cystic plate. Packed gallbladder and sent to pathology along with large stones. Washed out the abdomen with 2 L of warm normal saline. Adequate hemostasis achieved using electrocautery. Confirmed adequate hemostasis. Applied fibrin glue to resection bed. Left a 15 Mongolian Giovani drain in the resection bed. Inspected the hepatic flexure, duodenum, stomach and they all appeared intact. Patient woke up anesthesia without any complications. Estimated blood loss: 50cc Specimen(s) removed: Gallbladder sent to pathology Post-operative diagnosis: Chronic gangrenous cholecystitis
[2025-05-23] MEDS: fentaNYL 50 mcg/mL INJ 2mL IVP ×2 (09:30→10:26)
[2025-05-23] MEDS: HYDROmorphone 1 mg/mL INJ 1ml 0.5 MG IVP (09:57)
--- NOTE | 2025-05-23 10:57 | ANES.PROC ---
Anesthesia Procedures Procedure/Date: 05/23/25 Right tap block for postoperative pain control Nerve Block ^: Nerve Block 1: Main Anesthesia: general anesthesia Time Out Performed: Yes Consent: requested by attending/covering physician and from patient Laterality: Right Nerve block location: other (TAP) Anesthesia monitors applied: pulse oximetry, EKG, BP cuff and oxygen Nerve block position: supine Anesthetic Used: other (ropivacaine 0.2%) Amount of anesthesia used (mL): 40 Ultrasound used to: recognize landmarks Nerve Stimulator Used?: Yes Interscalene/Femoral BLK: other needle (pjunk 4inch) Injection: neg aspiration of heme Patient Tolerated Procedure: well Complications: none
[2025-05-23] MEDS: acetaminophen 1,000 MG/100 ML PIGGYBACK 400 MG IV ×2 (11:15→18:49)
[2025-05-23] MEDS: oxyCODONE 5 mg IR Tab/Cap PO ×4 (11:30→22:23)
--- NOTE | 2025-05-23 12:30 | ANE.PACU2 ---
Inpatient post-anesthesia follow up: Airway intact: Yes Vital signs: Temperature 97.6 F Pulse Rate 98 Respiratory Rate 16 Blood Pressure 134/89 Pulse Oximetry 92 Oxygen Delivery Me thod Room Air Oxygen Flow Rate Fraction of Inspir ed Oxygen Hydration adequate: Yes Nausea and vomiting: No Pain level: 1 Mental status: Baseline
[2025-05-23] MEDS: piperacillin-tazobactam 3.375 GM in sodium chloride 0.9% (plus) 50 ML IV ×2 (12:48→20:01)
--- NOTE | 2025-05-23 16:08 | PC.NURSE ---
Notified Dr. Ramirez due to patient not being able to void. Bladder scan ordered. Bladder scan read 423. Dr. Ramirez ordered a straight cath. Do bladder scan in 6 hours if greater than [address] a patel. Bladder scan is ordered PRN. Continue to see if patient can void.
[2025-05-24] VITALS (11 sets, daily range): BP systolic 108–116; BP diastolic 61–71; PULSE 92–101; RESP 16–18; TEMP 36.7–36.9; O2SAT 98–100
[2025-05-24] MEDS: piperacillin-tazobactam 3.375 GM in sodium chloride 0.9% (plus) 50 ML IV ×3 (03:41→20:53)
[2025-05-24] MEDS: oxyCODONE 5 mg IR Tab/Cap PO ×5 (03:42→22:37)
[2025-05-24] MEDS: acetaminophen 1,000 MG/100 ML PIGGYBACK 400 MG IV ×2 (03:43→11:22)
--- NOTE | 2025-05-24 10:26 | PM.PN ---
Subjective Subjective: No acute events overnight Voiding spontaneously Abdominal pain improved Drain is serosanguineous Tolerating clears Dressings clean dry intact Vitals/I&O/Wt Last Vital Signs Temp 98.3 F 05/24/25 07:52 Pulse 98 05/24/25 07:52 Resp 18 05/24/25 08:10 BP 116/71 05/24/25 07:52 Pulse Ox 99 05/24/25 08:10 O2 Del Method Room Air 05/24/25 07:52 05/23/25 05/24/25 05/24/25 22:59 06:59 14:59 Intake Total 550 / 2450 1150 / 3600 730 / 730 Output Total 1050 / 1180 1060 / 2240 Balance -500 / 1270 90 / 1360 730 / 730 Weight last 48 hrs Weight 153 lb Weight 152 lb 6 oz Weight 155 lb Physical Exam Narrative: Chest: Unlabored breathing room air. No lymphadenopathy. Heart: Regular rate and rhythm. Abdomen: Soft, appropriately tender. Nondistended. Drain serosanguineous. Dressings clean dry intact. A&P Assessment and plan 1. Chronic cholecystitis: 2. Gangrenous cholecystitis: Plan: 24-year-old male who presented with chronic cholecystitis and gangrenous cholecystitis. Laparoscopic cholecystectomy converted to open cholecystectomy due to severe inflammatory changes in the right upper quadrant. Doing well this morning. Drain is serosanguineous. Pain is improved. Tolerating clears. Will advance to regular diet. Encourage patient to get out of bed and ambulate. If he is still doing well tomorrow we will plan for discharge with drain in place and follow-up in 2 weeks. Mother was at bedside. Answered all their questions. PDMP PDMP Reviewed: Not Reviewed Attestations Medical Necessity Statement*: Open cholecystectomy, chronic cholecystitis, pain control, Coding Level of Care Code 83674 Diagnoses Chronic cholecystitis K81.1 Gangrenous cholecystitis K81.0
[2025-05-25] VITALS (8 sets, daily range): BP systolic 108–125; BP diastolic 67–74; PULSE 91–99; RESP 15–18; TEMP 36.7–37; O2SAT 95–97
[2025-05-25] MEDS: oxyCODONE 5 mg IR Tab/Cap PO ×4 (02:37→15:09)
[2025-05-25] MEDS: piperacillin-tazobactam 3.375 GM in sodium chloride 0.9% (plus) 50 ML IV (04:37)
--- NOTE | 2025-05-25 08:38 | P.DS_ITS ---
Discharge Providers Date of Admission: 05/23/25 12:03 Date of Discharge: May 25, 2025 Attending Provider at Admission: Tony Ramirez MD Attending Provider at Discharge: Tony Ramirez MD Primary Care Provider: Valentine Bennett DO Diagnoses at Discharge Discharge Diagnosis 1. Chronic cholecystitis: 2. Gangrenous cholecystitis: Reason for Visit Reason for Visit: K80.50 Hospital Course Hospital Course 24-year-old male who presented with biliary colic. Patient came in for elective laparoscopic cholecystectomy possible open. Laparoscopic dissection of the gallbladder was extremely difficult. I was unable to obtain a critical view of safety due to severe inflammatory changes in the right upper quadrant as well as friable gallbladder and bleeding. I decided to convert to an open cholecystectomy. The gallbladder was dissected safely down to the mid body. At this point further dissection towards the cystic duct proved extremely difficult given the chronic inflammatory changes. I decided at this point that the safest thing would be to pursue a partial cholecystectomy. I opened the gallbladder and emptied all of the stones. I palpated the cystic duct as well as the infundibulum and body of the gallbladder and palpated no stones. I also palpated the area of the common bile duct and felt no stones. The specimen was sent to pathology along with a couple large stones. A drain was left in place given he is at high risk for a bile leak given the difficult dissection. Patient was admitted for pain control, drain monitoring, and antibiotics given findings of chronic cholecystitis. Patient did well postoperatively. The drain remained serosanguineous throughout. On his second postoperative day pain was under control and he was deemed appropriate for discharge. Patient has been instructed to call the office and return to the emergency department for worsening abdominal pain, fever, increasing drain output, drain output that turns yellow/green/dark brown. Patient will finish off a 7-day course of antibiotics at home. Mother has been involved in his care. I answered all of the patient's questions and mother's questions. They are comfortable with this plan. Discharge Data Studies Completed and Pending Pending at discharge Category Date Time Status Pathology: Surgical [PTH] Routine Pth 05/23/25 08:54 Received Vitals Last Vital Signs Temp 98.6 F 05/25/25 07:06 Pulse 99 05/25/25 07:06 Resp 16 05/25/25 07:12 BP 108/67 05/25/25 07:06 Pulse Ox 97 05/25/25 07:06 O2 Del Method Room Air 05/25/25 07:06 Discharge Plan Discharge Patient Disposition: Home Condition: Stable Prescriptions: New acetaminophen [Tylenol Extra Strength] 500 mg tablet 1,000 mg PO TID 5 Days Qty: 30 0RF ibuprofen 800 mg tablet 800 mg PO Q6H 5 Days Qty: 20 0RF oxycodone 5 mg tablet 5 mg PO Q6H PRN (Reason: pain) 10 Days Qty: 30 0RF amoxicillin-pot clavulanate 875-125 mg tablet 1 tab PO Q12H 5 Days Qty: 10 0RF Continued diltiazem HCl 30 mg tablet 30 mg PO BID PRN (Reason: tachycardia) Qty: 90 3RF ferrous gluconate [Ferate] 240 mg (27 mg iron) tablet 240 mg PO DAILY cholecalciferol (vitamin D3) 250 mcg (10,000 unit) capsule 250 mcg PO DAILY bupropion HCl [Wellbutrin XL] 150 mg tablet extended release 24 hr 150 mg PO QAM Qty: 30 5RF gabapentin 100 mg capsule See Rx Instructions .ROUTE .COMPLEX Qty: 30 5RF Dose Instruction: TAKE 1 CAPSULE BY MOUTH DAILY NEEDED FOR ANXIETY Rx Instructions: TAKE 1 CAPSULE BY MOUTH DAILY NEEDED FOR ANXIETY dextroamphetamine-amphetamine 20 mg tablet 20 mg PO QDAY 30 Days Qty: 30 0RF dextroamphetamine-amphetamine [Adderall XR] 30 mg capsule,extended release 24hr 30 mg PO BID 30 Days Qty: 60 0RF oxycodone 5 mg tablet 5 mg PO Q6H PRN (Reason: severe pain (scale score 7-10)) Qty: 12 0RF lamotrigine 200 mg tablet 1 mg PO DAILY Discharge Order = DC NOW: Discharge Order (Routine); Ordered 05/25/25 Ordered By: Tony Ramirez Referrals: Tony Ramirez MD [Physician, General Surgery] - 06/07/25 9:35 am Valentine Bennett DO [Primary Care Provider, Family Practice] Referral Note: We have notified your physician's clinic of the need for a follow-up appointment to be scheduled. If you have not heard from them within the next 2 business days, please call them directly. Discharge Diet: Usual diet Discharge Activity: Limit activity as instructed Patient Instructions: Oxycodone, Rapid Release (By mouth), Acute Wound Care (DC), Laparoscopic Cholecystectomy (DC), Opioid Safety, Post Anesthesia Care, Patient Portal & Aime Instructions Activity Restrictions/Additional Instructions: 1. No heavy exercise or lifting greater than 10lbs for 6 weeks. 2. No pools, saunas, bathtubs for 2 weeks. Ok to shower the day following fernandez rgery. Ok to remove any dressings you may have the day following surgery. Document drain output daily. Document color of output. If color turns yellow, green, or dark brown call the office. If you get a fever or worsening abdominal pain or increasing drain output come back to the emergency department or call the office. Strip drain daily and empty it daily as well. 3. Do not drive if taking narcotics. 4. You may take over the counter tylenol 1000mg every 8 hrs and ibuprofen 800mg every 6 hrs as needed for 5 days in addition to the oxycodone. 5. Follow-up in clinic in 2 weeks. 6. Call the office if you have any concerns or questions. Discharge Attestations Time Spent in Discharge Care*: greater than 30 min Quality Metrics Clinical Quality Measures [ No reported AMI, CVA or VTE this stay] Coding Level of Care Code Acute Code for Chg Fwd Diagnoses Chronic cholecystitis K81.1 Gangrenous cholecystitis K81.0
--- NOTE | 2025-05-25 08:38 | PM.PN ---
Subjective Subjective: No acute events overnight Abdominal pain much improved Drain is serosanguineous 80 cc over 24 hours Tolerating regular diet Passing gas Incision is clean dry intact Vital signs within normal limits Vitals/I&O/Wt Last Vital Signs Temp 98.6 F 05/25/25 07:06 Pulse 99 05/25/25 07:06 Resp 16 05/25/25 07:12 BP 108/67 05/25/25 07:06 Pulse Ox 97 05/25/25 07:06 O2 Del Method Room Air 05/25/25 07:06 05/24/25 05/25/25 05/25/25 22:59 06:59 14:59 Intake Total 930 / 2240 250 / 2490 Output Total 960 / 960 30 / 990 Balance -30 / 1280 220 / 1500 Weight last 48 hrs Weight 153 lb Weight 152 lb 6 oz Physical Exam Narrative: Chest: Unlabored breathing room air. No lymphadenopathy. Heart: Regular rate and rhythm. Abdomen: Soft, appropriately tender, nondistended. Incision clean dry intact. Drain is serosanguineous. A&P Assessment and plan 1. Chronic cholecystitis: 2. Gangrenous cholecystitis: Plan: 24-year-old male who presented with chronic cholecystitis. Laparoscopic cholecystectomy converted to open for difficult dissection given severe inflammatory changes in the right upper quadrant and friable gallbladder. Drain has remained serosanguineous. Vital signs within normal limits. Abdominal pain is much improved. Patient has tolerated a diet and is passing gas. Patient feels ready to go home. Instructed to call the office if he develops worsening abdominal pain, increasing drain output, if the output of the drain becomes yellow, green, or dark. Instructed to call the office if he develops a fever. He understands that he is at risk of a bile leak which would require an ERCP in [place]. He will follow-up with me in 2 weeks for possible drain removal. Mother at bedside who feels comfortable with the plan. I answered all of their questions. PDMP PDMP Reviewed: Last Reviewed 05/25/25 09:35 EST by Tony Ramirez MD Attestations Medical Necessity Statement*: Chronic cholecystitis, laparoscopic converted to open cholecystectomy Coding Level of Care Code 17109 Diagnoses Chronic cholecystitis K81.1 Gangrenous cholecystitis K81.0
--- NOTE | 2025-05-25 15:10 | PC.NURSE ---
Discharge Note Patient discharged to home via private vehicle accompanied by mother. Discharge instructions reviewed with patient and/or transportation services representative. Mobile pharmacy medications and/or prescriptions provided. Belongings/home medications returned.
--- NOTE | 2025-05-25 15:11 | PC.NURSE ---
Patient a little nauseous and mom wants to stay a little bit longer to make sure he is not going to vomit.
== END 2025-05-25 16:32 | disposition home or self-care (01) | DRG 415 ==
LOC: MEDSURG 12:04
PROVIDERS: Admitting Provider Student in an Organized Health Care Education/Training Program; PCP Family Medicine; Visit Provider Student in an Organized Health Care Education/Training Program
PROC: 0FT44ZZ Resection of Gallbladder, Percutaneous Endoscopic Approach (ICD-10-PCS; CPT 47562; principal; 2025-05-23 07:00)
PROC: 0FT40ZZ Resection of Gallbladder, Open Approach (ICD-10-PCS; CPT 47600; 2025-05-23 07:00)
DX: K80.10 Calculus of gallbladder with chronic cholecystitis without obstruction (principal); F33.9 Major depressive disorder, recurrent, unspecified; K82.A1 Gangrene of gallbladder in cholecystitis; Z53.31 Laparoscopic surgical procedure converted to open procedure; Z79.899 Other long term (current) drug therapy
CPT/HCPCS: 51702; 51798; 88304; A4216; C9250; J0131; J0690; J1100; J1171; J1885; J2250; J2371; J2405; J2543; J2704; J3010; J3490; J7030; J9999

== ENCOUNTER → 2025-07-02 15:52 | Outpatient (BNVA) | payer OTHER, SELFPAY | PROVIDERS: PCP Family Medicine; Visit Provider Family Medicine | DX: D50.8 Other iron deficiency anemias (principal) | CPT/HCPCS: 82728; 83550; 85025 ==